=== PATIENT | male | born 1955 | race Caucasian/White ===

== ENCOUNTER 2016-11-10 11:01 | Emergency (ER) | payer BC ==
[~2016-11-10 11:01] MED LIST: AMBIEN10 M1 PO; AMITIZA24 MC1 PO; BACITRACIN28.4 G2 TP; CHLORASEPTIC T180 ML MM; EFFEXOR XR75 M1 PO; IBUPROFEN600 MG PO; LIPITOR40 M1 PO; MILK OF MAGNESIA PO; MOTRIN200 MG/TAB PO; MOTRIN600 MG PO; MOVANTIK25 MG PO; NICOTINE PATCH1 EAC2 TP; NORCO 5/3251 TAB PO; PEN-VEE K500 MG PO; PERCOCET 10-321 EACH PO; QUETIAPINE FUM100 M1 PO; ZOFRAN4 MG PO
[2016-11-10 14:50] LABS: BASO % 0.3 % (0-2); EOS % 0.8 % (0-7); EOSINOPHIL ABSOLUTE COUNT 0.1 tho/cmm (0.0-0.7); HCT-HEMATOCRIT 47.6 % (36.0-53.5); HGB-HEMOGLOBIN 16.1 gm/dl (13.5-17.0); IMMATURE GRANULOCYTES ABSOLUTE 0.06 tho/cmm (0-0.03); IMMATURE GRANULOCYTES PERCENT 0.4 % (0-0.3); LYMPH % 11.3 % (20-45); LYMPH ABSOLUTE COUNT 1.8 tho/cmm (0.8-4.5); MCH (MEAN CORPUSCULAR HGB) 27.6 pg (28.0-32.0); MCHC MEAN CORPUSCULAR HGB CONC 33.8 % (32.0-36.0); MCV (MEAN CELL VOLUME) 81.5 fl (82.0-96.0); MEAN PLATELET VOLUME 9.4 cmc (9.4-12.4); MONO % 10.9 % (0-12); MONOCYTE ABSOLUTE COUNT 1.7 tho/cmm (0.0-1.2); NEUTROPHIL ABSOLUTE COUNT 12.2 tho/cmm (1.6-8.0); NEUTROPHIL-AUTOMATED 12.2 tho/cmm (1.6-8.0); NEUTROPHILS % 76.3 % (40-80); PLATELET COUNT 451 tho/cmm (150-450); RED BLOOD COUNT 5.84 mil/cmm (4.40-5.70); RED CELL DISTRIBUTION WIDTH 14.5 % (12.4-16.4); WHITE BLOOD COUNT 15.9 tho/cmm (4.0-10.0)
[2016-11-10 15:05] LABS: ALB/GLOB RATIO 0.9 (0.8-2.0); ALBUMIN 4.1 g/dl (3.5-5.0); ALKALINE PHOSPHATASE 112 U/L (33-138); ALT/SGPT 23 U/L (12-78); ANION GAP 14 mmol/L (0-20); AST/SGOT 12 U/L (10-40); BILIRUBIN,TOTAL 1.7 mg/dl (0.0-1.5); BLOOD UREA NITROGEN 22 mg/dl (6-24); CALCIUM 9.5 mg/dl (8.5-10.5); CARBON DIOXIDE-VENOUS 27 mmol/L (22-32); CHLORIDE 100 mmol/l (96-110); CREATININE 1.21 mg/dl (0.60-1.30); GLUCOSE 109 mg/dL (70-110); LIPASE 75 U/L (73-393); POTASSIUM 3.9 mmol/L (3.7-5.1); SODIUM 137 mmol/L (135-145); eGFR VALUE FOR BLACK 75 mL/Min
[2016-11-10 15:05] LABS: URINE BILIRUBIN NEGATIVE (NEG); URINE BLOOD LARGE (NEG); URINE GLUCOSE (UA) NEGATIVE (NEG); URINE KETONE MODERATE (NEG); URINE LEUKOCYTE ESTERASE POSITIVE (NEG); URINE NITRITE NEGATIVE (NEG); URINE PROTEIN MODERATE (NEG); URINE SPECIFIC GRAVITY 1.025 (1.003-1.030)
[2016-11-10 15:06] LABS: URINE APPEARANCE CLOUDY; URINE COLOR YELLOW
[2016-11-10 15:14] LABS: URINE WBC 20-30 /[HPF] (0-5)
[2016-11-10 15:15] LABS: URINE BACTERIA 2+
[2016-11-10] MEDS ORDERED: BACTRIM DS TAB1 EAC2 PO (18:05)
[2016-11-10] MEDS ORDERED: ZOFRAN4 M2 PO (18:06)
[2016-11-11] MEDS ORDERED: TRIAMCINOLONE A15 G2 TP (16:38)
[2016-11-11] MEDS ORDERED: ZOFRAN4 M2 PO (16:38)
[2016-11-11] MEDS ORDERED: BACTRIM DS TAB1 EAC2 PO (16:39)
[2016-11-11] MEDS ORDERED: HYDROCODON-ACE1 EA16 PO (16:39)
[2016-11-11] MEDS ORDERED: ULTRAM50 M1 PO (16:40)
[2016-11-11] MEDS ORDERED: COMPAZINE10 MG PO (16:40)
[2016-11-11] MEDS ORDERED: PREDNISONE10 M1 PO (16:42)
[2016-11-11] MEDS ORDERED: CALCIPOTRIENE60 ML TP (16:43)
[2016-11-11] MEDS ORDERED: TEMOVATE30 G1 TP (16:44)
[2016-11-11] MEDS ORDERED: ACITRETIN25 MG PO (16:44)
== END 2016-11-10 18:25 ==
LOC: EDMED 11:01
PROVIDERS: Physician Assistant
DX: N39.0 Urinary tract infection, site not specified (principal); C61 Malignant neoplasm of prostate; Z79.899 Other long term (current) drug therapy; F17.210 Nicotine dependence, cigarettes, uncomplicated; Z98.890 Other specified postprocedural states
CPT/HCPCS: J2405; J7030; Q9967

== ENCOUNTER 2016-11-11 15:34 | Inpatient (IN) | payer BC ==
[~2016-11-11 15:34] MED LIST changes: +BACTRIM DS TAB1 EAC2 PO; +ZOFRAN4 M2 PO
[2016-11-11 16:18] LABS: BASO % 0.1 % (0-2); EOS % 0.1 % (0-7); HCT-HEMATOCRIT 43.2 % (36.0-53.5); HGB-HEMOGLOBIN 14.7 gm/dl (13.5-17.0); IMMATURE GRANULOCYTES ABSOLUTE 0.07 tho/cmm (0-0.03); IMMATURE GRANULOCYTES PERCENT 0.5 % (0-0.3); LYMPH % 7.6 % (20-45); MCH (MEAN CORPUSCULAR HGB) 27.4 pg (28.0-32.0); MCV (MEAN CELL VOLUME) 80.6 fl (82.0-96.0); MEAN PLATELET VOLUME 9.2 cmc (9.4-12.4); MONO % 5.1 % (0-12); MONOCYTE ABSOLUTE COUNT 0.7 tho/cmm (0.0-1.2); NEUTROPHIL ABSOLUTE COUNT 11.2 tho/cmm (1.6-8.0); NEUTROPHIL-AUTOMATED 11.2 tho/cmm (1.6-8.0); NEUTROPHILS % 86.6 % (40-80); PLATELET COUNT 462 tho/cmm (150-450); RED BLOOD COUNT 5.36 mil/cmm (4.40-5.70); RED CELL DISTRIBUTION WIDTH 14.5 % (12.4-16.4)
[2016-11-11 16:32] LABS: ALB/GLOB RATIO 0.9 (0.8-2.0); ALBUMIN 3.9 g/dl (3.5-5.0); ALKALINE PHOSPHATASE 110 U/L (33-138); ALT/SGPT 22 U/L (12-78); ANION GAP 13 mmol/L (0-20); AST/SGOT 12 U/L (10-40); BILIRUBIN,TOTAL 0.9 mg/dl (0.0-1.5); BLOOD UREA NITROGEN 18 mg/dl (6-24); CALCIUM 9.2 mg/dl (8.5-10.5); CARBON DIOXIDE-VENOUS 24 mmol/L (22-32); CHLORIDE 101 mmol/l (96-110); CREATININE 1.37 mg/dl (0.60-1.30); GLUCOSE 128 mg/dL (70-110); LIPASE 77 U/L (73-393); POTASSIUM 4.2 mmol/L (3.7-5.1); SODIUM 134 mmol/L (135-145); eGFR VALUE FOR BLACK 65 mL/Min
[2016-11-11] MEDS ORDERED: ZOFRAN4 M2 PO (16:38)
[2016-11-11] MEDS ORDERED: TRIAMCINOLONE A15 G2 TP (16:38)
[2016-11-11] MEDS ORDERED: BACTRIM DS TAB1 EAC2 PO (16:39)
[2016-11-11] MEDS ORDERED: HYDROCODON-ACE1 EA16 PO (16:39)
[2016-11-11] MEDS ORDERED: ULTRAM50 M1 PO (16:40)
[2016-11-11] MEDS ORDERED: COMPAZINE10 MG PO (16:40)
[2016-11-11] MEDS ORDERED: PREDNISONE10 M1 PO (16:42)
[2016-11-11] MEDS ORDERED: CALCIPOTRIENE60 ML TP (16:43)
[2016-11-11] MEDS ORDERED: TEMOVATE30 G1 TP (16:44)
[2016-11-11] MEDS ORDERED: ACITRETIN25 MG PO (16:44)
[2016-11-12 05:30] LABS: BASO % 0.3 % (0-2); EOS % 2.3 % (0-7); EOSINOPHIL ABSOLUTE COUNT 0.3 tho/cmm (0.0-0.7); HCT-HEMATOCRIT 38.6 % (36.0-53.5); HGB-HEMOGLOBIN 12.8 gm/dl (13.5-17.0); IMMATURE GRANULOCYTES ABSOLUTE 0.05 tho/cmm (0-0.03); IMMATURE GRANULOCYTES PERCENT 0.4 % (0-0.3); LYMPH % 22.4 % (20-45); LYMPH ABSOLUTE COUNT 2.7 tho/cmm (0.8-4.5); MCHC MEAN CORPUSCULAR HGB CONC 33.2 % (32.0-36.0); MCV (MEAN CELL VOLUME) 81.4 fl (82.0-96.0); MEAN PLATELET VOLUME 8.9 cmc (9.4-12.4); MONO % 12.6 % (0-12); MONOCYTE ABSOLUTE COUNT 1.5 tho/cmm (0.0-1.2); NEUTROPHIL ABSOLUTE COUNT 7.5 tho/cmm (1.6-8.0); NEUTROPHIL-AUTOMATED 7.5 tho/cmm (1.6-8.0); PLATELET COUNT 354 tho/cmm (150-450); RED BLOOD COUNT 4.74 mil/cmm (4.40-5.70); RED CELL DISTRIBUTION WIDTH 14.6 % (12.4-16.4); WHITE BLOOD COUNT 12.1 tho/cmm (4.0-10.0)
[2016-11-12 05:47] LABS: ALB/GLOB RATIO 0.9 (0.8-2.0); ALBUMIN 3.1 g/dl (3.5-5.0); ALKALINE PHOSPHATASE 86 U/L (33-138); ALT/SGPT 16 U/L (12-78); ANION GAP 12 mmol/L (0-20); AST/SGOT 9 U/L (10-40); BILIRUBIN,TOTAL 1.2 mg/dl (0.0-1.5); BLOOD UREA NITROGEN 14 mg/dl (6-24); CALCIUM 8.5 mg/dl (8.5-10.5); CARBON DIOXIDE-VENOUS 26 mmol/L (22-32); CHLORIDE 103 mmol/l (96-110); CREATININE 1.22 mg/dl (0.60-1.30); GLUCOSE 88 mg/dL (70-110); POTASSIUM 3.9 mmol/L (3.7-5.1); SODIUM 137 mmol/L (135-145); eGFR VALUE FOR BLACK 75 mL/Min
[2016-11-13 05:47] LABS: BASO % 0.5 % (0-2); BASO ABSOLUTE COUNT 0.1 tho/cmm (0.0-0.2); EOS % 8.2 % (0-7); EOSINOPHIL ABSOLUTE COUNT 0.9 tho/cmm (0.0-0.7); HCT-HEMATOCRIT 39.7 % (36.0-53.5); HGB-HEMOGLOBIN 13.2 gm/dl (13.5-17.0); IMMATURE GRANULOCYTES ABSOLUTE 0.03 tho/cmm (0-0.03); IMMATURE GRANULOCYTES PERCENT 0.3 % (0-0.3); LYMPH % 18.9 % (20-45); MCHC MEAN CORPUSCULAR HGB CONC 33.2 % (32.0-36.0); MCV (MEAN CELL VOLUME) 81.4 fl (82.0-96.0); MEAN PLATELET VOLUME 9.2 cmc (9.4-12.4); MONO % 11.6 % (0-12); MONOCYTE ABSOLUTE COUNT 1.2 tho/cmm (0.0-1.2); NEUTROPHIL ABSOLUTE COUNT 6.3 tho/cmm (1.6-8.0); NEUTROPHIL-AUTOMATED 6.3 tho/cmm (1.6-8.0); NEUTROPHILS % 60.5 % (40-80); PLATELET COUNT 362 tho/cmm (150-450); RED BLOOD COUNT 4.88 mil/cmm (4.40-5.70); RED CELL DISTRIBUTION WIDTH 14.5 % (12.4-16.4); WHITE BLOOD COUNT 10.4 tho/cmm (4.0-10.0)
[2016-11-14] MEDS ORDERED: CLARITIN10 M6 PO (13:53)
[2016-11-14] MEDS ORDERED: PEPCID20 M1 PO (13:54)
[2016-11-14] MEDS ORDERED: REGLAN10 M2 PO (13:55)
[2016-11-14] MEDS ORDERED: TYLENOL325 M2 PO (13:59)
== END 2016-11-14 14:45 | DRG 641 ==
LOC: EDMED 15:34 → EMR2 18:36 → CAR1 20:18
PROVIDERS: Emergency Medicine; Internal Medicine; ADMIT Hospitalist
DX: E86.0 Dehydration (principal); C61 Malignant neoplasm of prostate; C79.51 Secondary malignant neoplasm of bone; N39.0 Urinary tract infection, site not specified; R11.2 Nausea with vomiting, unspecified; F32.9 Major depressive disorder, single episode, unspecified; I95.1 Orthostatic hypotension; J44.9 Chronic obstructive pulmonary disease, unspecified; G47.00 Insomnia, unspecified; Z87.891 Personal history of nicotine dependence
CPT/HCPCS: J1956; J2405; J2550; J2765; J7030